=== PATIENT | male | born 1990 | race Two or more races ===

== ENCOUNTER 2024-11-28 17:10 | Emergency (ER) | payer OTHER ==
[~2024-11-28] VITALS: Ht 177.8 cm; Wt 90.7 kg
[2024-11-28] MEDS ORDERED: METFORMIN HCL850 MG (18:37)
[2024-11-28] MEDS ORDERED: ACETAMINOPHEN 500 MG GEL..CAP PO STA (18:54)
[2024-11-28] MEDS ORDERED: 0.9 % SODIUM CHLORIDE 1,000 ML IV STA (18:54)
[2024-11-28 20:05] LABS: BASO % 0.3 % (0.1-1.2); EOS # 0.13 (0.04-0.54); EOS % 1.4 % (0.7-7.0); LYMPH # 1.54 (1.18-3.74); LYMPH % 16.9 % (19.3-53.1); MEAN PLATELET VOLUME 10.10 fl (9.4-12.4); MONO # 0.45 (0.24-0.82); MONO % 5.0 % (4.7-12.5); NEUT # 6.89 (1.56-6.13); NEUT % 75.8 % (34.0-71.1); RED CELL DISTRIBUTION WIDTH 14.1 % (11.6-14.4)
[2024-11-28 20:37] LABS: INR 1.06
[2024-11-28 20:44] LABS: ALT/SGPT 116.0 U/L (12-78); AST/SGOT 74.0 U/L (15-37); BILIRUBIN TOTAL 0.81 mg/dL (0.3-1.2); BUN CREA RATIO 14.0 (7.0-25.0); CREATININE SERUM 0.79 mg/dL (0.70-1.30); GFR 112.27; GLOBULINA 3.3 G/DL (2.4-3.5); GLUCOSE FASTING 167.0 mg/dL (65-100); OSMOLALITY SERUM 284.0 MOSM/KG (275-295)
[2024-11-28 21:06] LABS: URINE APPEARANCE Clear; URINE BILIRRUBIN Negative (NEGATIVE); URINE BLOOD Negative; URINE COLOR Yellow; URINE GLUCOSE Negative (NEGATIVE); URINE KETONE Negative (NEGATIVE); URINE LEUKOCYTE Negative; URINE NITRATE Negative; URINE PROTEIN Negative (NEGATIVE); URINE UROBILINOGEN 1.0 E.U./dl
[2024-11-28 21:10] LABS: URINE EPITHELIAL CELLS 1.6 uL (0.0-38.8); URINE WBC 1.8 uL (0.0-23.2)
[2024-11-28 21:17] LABS: URINE BACTERIA 0 uL (0.0-1933); URINE CAST 0.00 uL (0.0-1.40); URINE RBC 1.9 uL (0.0-20.8)
[2024-11-28] MEDS ORDERED: METFORMIN HCL1000 M2 PO (21:56)
[2024-11-28] MEDS ORDERED: ONDANSETRON HCL 2 MG/ML VIAL IV ONE (23:00)
== END 2024-11-28 22:45 | disposition home or self-care (01) ==
LOC: ER 17:10
PROVIDERS: Physician Assistant Medical
DX: E11.65 Type 2 diabetes mellitus with hyperglycemia (principal); Z79.84 Long term (current) use of oral hypoglycemic drugs; R51.9 Headache, unspecified; J45.909 Unspecified asthma, uncomplicated; E66.01 Morbid (severe) obesity due to excess calories; K76.0 Fatty (change of) liver, not elsewhere classified